=== PATIENT | female | born 2000 | race African-American/Black ===

== ENCOUNTER 2021-07-31 06:21 | Day surgery (SDC) | payer BC ==
[2021-07-28 12:35] VITALS: BMI 26.4
[2021-07-31] MEDS ORDERED: BUPIVACAINE HCL/PF 0.25% (2.5MG/ML) 10 ML VIAL ONE (07:06)
[2021-07-31] MEDS ORDERED: MIDAZOLAM HCL 2 MG/2 ML SINGLE DOSE VIAL ONE (07:17)
[2021-07-31] MEDS ORDERED: PROPOFOL 20 ML ONE ×2 (07:26)
[2021-07-31] MEDS ORDERED: SUCCINYLCHOLINE CHLORIDE 200 MG/10 ML SYRINGE ONE (07:27)
[2021-07-31] MEDS ORDERED: DEXAMETHASONE SOD PHOSPHATE 4 MG/1 ML VIAL ONE (07:37)
[2021-07-31] MEDS ORDERED: ONDANSETRON 4 MG/2 ML VIAL ONE ×2 (07:37→08:44)
[2021-07-31] MEDS ORDERED: ceFAZolin SODIUM 1 GM VIAL ONE (07:42)
[2021-07-31] MEDS ORDERED: KETOROLAC TROMETHAMINE 30 MG/1 ML VIAL ONE (07:51)
[2021-07-31] MEDS ORDERED: ONDANSETRON 4 MG/2 ML VIAL IVPUSH PRN (08:59)
[2021-07-31] MEDS ORDERED: oxyCODONE HCL 5 MG TABLET PO PRN (08:59)
[2021-07-31] MEDS ORDERED: LACTATED RINGERS SOLUTION 1,000 ML IV SCH (09:00)
[2021-07-31] MEDS ORDERED: ACETAMINOPHEN 1000 MG/100 ML VIAL (NON FORMULARY) IVPB ONE (09:20)
[2021-07-31] MEDS ORDERED: ACETAMINOPHEN INJECTION 100 ML IVPB ONE (09:20)
[2021-07-31] MEDS ORDERED: oxyCODONE HCL 5 MG TABLET PO ONE (10:00)
[2021-07-31 10:18] VITALS: TEMP 97.8
[2021-07-31 11:01] VITALS: BP 115/71; PULSE 66
== END 2021-07-31 11:56 | disposition home or self-care (01) ==
LOC: FASU 06:21
PROVIDERS: ATTEND Orthopaedic Surgery Sports Medicine
PROC: 0SQD4ZZ Repair Left Knee Joint, Percutaneous Endoscopic Approach (ICD-10-PCS; principal; 2021-07-31 08:01)
PROC: 0SBD4ZZ Excision of Left Knee Joint, Percutaneous Endoscopic Approach (ICD-10-PCS; 2021-07-31 08:01)
DX: S83.212A Bucket-handle tear of medial meniscus, current injury, left knee, initial encounter (principal); M65.9 Synovitis and tenosynovitis, unspecified; X58.XXXA Exposure to other specified factors, initial encounter; Y93.9 Activity, unspecified; Y92.9 Unspecified place or not applicable
CPT/HCPCS: 81025; 94760; J0131

== ENCOUNTER 2021-12-04 14:55 | Emergency (ER) | payer BC ==
[2021-12-04 15:07] VITALS: BP 101/53; PULSE 73; TEMP 98.7; BMI 24.5
[2021-12-04] MEDS ORDERED: KETOROLAC TROMETHAMINE 30 MG/1 ML VIAL IM ONE (15:19)
[2021-12-04] MEDS ORDERED: KETOROLAC TROMETHAMINE 30 MG/1 ML VIAL ONE (15:37)
== END 2021-12-04 16:25 | disposition home or self-care (01) ==
LOC: FER 14:55
PROC: 3E0233Z Introduction of Anti-inflammatory into Muscle, Percutaneous Approach (ICD-10-PCS; principal; 2021-12-04)
DX: S83.242A Other tear of medial meniscus, current injury, left knee, initial encounter (principal)
CPT/HCPCS: 73562-TC-LT-FY; 96372; 99284-25; C9803-CS; U0003; U0005

== ENCOUNTER 2021-12-07 10:30 | Day surgery (SDC) | payer BC ==
[2021-12-07 10:57] VITALS: BMI 26.4
[2021-12-07] MEDS ORDERED: MIDAZOLAM HCL 2 MG/2 ML SINGLE DOSE VIAL ONE ×2 (11:45→13:45)
[2021-12-07] MEDS ORDERED: BUPIVACAINE HCL 100 ML ONE (11:53)
[2021-12-07] MEDS ORDERED: ePHEDrine SULFATE 50 MG/1 ML AMPULE ONE (12:45)
[2021-12-07] MEDS ORDERED: PROPOFOL 20 ML ONE ×2 (13:00→13:18)
[2021-12-07] MEDS ORDERED: KETAMINE HCL 200 MG/20 ML VIAL ONE (13:17)
[2021-12-07] MEDS ORDERED: ACETAMINOPHEN INJECTION 100 ML IVPB ONE (13:23)
[2021-12-07] MEDS ORDERED: LACTATED RINGERS SOLUTION 1,000 ML IV SCH (14:00)
[2021-12-07 14:57] VITALS: TEMP 97.4
[2021-12-07 15:12] VITALS: PULSE 88
[2021-12-07 15:21] VITALS: BP 132/85
== END 2021-12-07 15:20 | disposition home or self-care (01) ==
LOC: FASU 10:30
PROVIDERS: ATTEND Orthopaedic Surgery Sports Medicine
PROC: 0SBD4ZZ Excision of Left Knee Joint, Percutaneous Endoscopic Approach (ICD-10-PCS; 2021-12-07)
PROC: 0SBD4ZZ Excision of Left Knee Joint, Percutaneous Endoscopic Approach (ICD-10-PCS; principal; 2021-12-07 12:47)
DX: S83.242A Other tear of medial meniscus, current injury, left knee, initial encounter (principal); S83.282A Other tear of lateral meniscus, current injury, left knee, initial encounter; M94.262 Chondromalacia, left knee; M65.862 Other synovitis and tenosynovitis, left lower leg; X58.XXXA Exposure to other specified factors, initial encounter; Y93.9 Activity, unspecified; Y92.9 Unspecified place or not applicable
CPT/HCPCS: 84703; 94760